=== PATIENT | male | born 1975 | race Caucasian/White ===

== ENCOUNTER → 2020-12-15 | Outpatient (CLI) | payer BC ==
--- NOTE | 2020-12-15 10:59 | Diagnostic Imaging Report ---
EXAMINATION: Bilateral shoulder at 10:35 a.m. INDICATION: Bilateral shoulder pain. Three views of each shoulder joint were obtained. There are no prior studies available for comparison. There is no fracture, dislocation or acute bony abnormality noted. There is mild degenerative disease of the glenohumeral joints bilaterally and moderate degenerative disease of the acromioclavicular joints. The soft tissues are unremarkable. IMPRESSION: 1. There is no evidence for an acute bony abnormality. 2. If there is clinical concern regarding injury to the labrum or rotator cuff, then MRI should be considered for further study. Dictated by: Dictated on workstation # [id number]
== END ==
LOC: RAD FS 10:32
PROVIDERS: ATTEND Nurse Practitioner
DX: M25.512 Pain in left shoulder (principal); M25.511 Pain in right shoulder

== ENCOUNTER 2021-05-18 11:08 | Emergency (ER) | payer BC, OTHER ==
[2021-05-18] MEDS ORDERED: HYDROcodone/APAP 5 MG/325 MG (LORTAB) TAB PO ONE (11:30)
[2021-05-18] MEDS ORDERED: HYDROcodone/APAP 5 MG/325 MG (LORTAB) TAB ONE (11:31)
--- NOTE | 2021-05-18 11:33 | ED Trauma-Multisystem ---
General Chief Complaint: Trauma-Non Activation Stated Complaint: WC FALL; HEAD INJ Nursing Triage Note: approx 20-30 ft fall History of Present Illness Date Seen by Provider: May 18, 2021 Time Seen by Provider: 11:25 Initial Comments 46-year-old male presents after falling off a deck while at work about 20 feet to the ground landing on his left side. Believes he was knocked out briefly when he hit the ground, but he got himself up, walked up the deck stairs and then got a rode home from a co-worker. After being home briefly he came to the ER with his . Patient complains of headache, left elbow pain, left hip pain. Denies any chest pain or shortness of air. Denies abdominal pain, nausea or vomiting. Denies any confusion or dizziness. No pain on his right side. No Significant past medical history Occurred: This Morning Allergies and Home Medications Allergies Coded Allergies: No Known Drug Allergies (Unverified , 05/18/21) Home Medications Cyclobenzaprine HCl 10 Mg Tablet, 10 MG PO Q8H PRN for SPASMS Prescribed by: RICKY LIMON on 05/18/21 1303 Hydrocodone/Acetaminophen 1 Each Tablet, 1 EACH PO Q4H Prescribed by: RICKY LIMON on 05/18/21 1304 Ibuprofen 800 Mg Tablet, 800 MG PO Q8H PRN for PAIN Prescribed by: RICKY LIMON on 05/18/21 1303 Patient Home Medication List Home Medication List Reviewed: Yes Review of Systems Review of Systems Constitutional: No fever, No malaise, No weakness Eyes: Denies Blindness, Denies Blurred Vision, Denies Photophobia Ears: No Symptoms Reported; Denies Dizziness, Denies Pain Nose: No Epistaxis, No Pain Mouth: No Symptoms Reported Throat: No Symptoms to Report Respiratory: no symptoms reported; No cough, No short of breath Cardiovascular: Denies Chest Pain, Denies Edema, Denies Palpitations Gastrointestinal: No abdominal pain, No loss of appetite, No nausea, No vomiting Genitourinary: No dysuria, No frequency, No hematuria Musculoskeletal: No back pain; joint pain (elbow and hip) Skin: other (facial abrasions and superficial lac's. ) Past Icrailv-Vkzfkl-Eowvxc Hx Patient Social History Tobacco Use?: No Substance use?: No Alcohol Use?: Yes Physical Exam Vital Signs Vital Signs - First Documented 05/18/21 11:10 Temp 36.5 Pulse 102 Resp 16 B/P (MAP) 143/92 (109) Pulse Ox 97 Height, Weight, BMI Height: '" Weight: lbs. oz. kg; BMI Method: General Appearance: No Apparent Distress, WD/WN Head: Contusions, Tenderness (scalp and forehead- superficial lac's and abrasions); No Mccain's Sign, No Raccoon Eyes Eyes: Bilateral Eye Normal Inspection, Bilateral Eye PERRL, Bilateral Eye EOMI Ears, Nose, Throat: Hearing Grossly Normal, No Evidence of ENT Injury, No Dental Injury Neck: Full Range of Motion, Normal Inspection, Non Tender, Supple; No Limited Range of Motion, No Tender Lateral, No Tender Midline Cardiovascular: Regular Rate, Rhythm, No Edema, No Gallop, No JVD, No Murmur Respiratory: Chest Non Tender, Lungs Clear, Normal Breath Sounds, No Accessory Muscle Use, No Respiratory Distress Gastrointestinal: Normal Bowel Sounds, No Organomegaly, No Pulsatile Mass, Non Tender, Soft Back: Normal Inspection, No CVA Tenderness, No Vertebral Tenderness Extremity: Normal Capillary Refill, Normal Range of Motion, Other (LUE- generaized TTP elbow; LLE- generalized left hip pain) Neurologic/Psychiatric: Alert, Oriented x3, No Motor/Sensory Deficits, Normal Mood/Affect, 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 Skin: Normal Color, Warm/Dry Hector Coma Score Best Eye Response (Ayaan): (4) Open Spontaneously Best Verbal Response (Ayaan): (5) Oriented Best Motor Response (Ayaan): (6) Obeys Commands Progress/Results/Core Measures Results/Orders My Orders Orders - RICKY LIMON DO Pelvis With Left Hip 2-3 View (05/18/21 11:25) Ct Head Wo (05/18/21 11:25) Ed Iv/Invasive Line Start (05/18/21 11:25) Elbow 3 View Left (05/18/21 11:25) Hydrocodone/Apap 5/325 Tablet (Lortab 5 (05/18/21 11:30) Hydrocodone/Apap 5/325 Tablet (Lortab 5 (05/18/21 11:31) Let Solution (Let Solution) (05/18/21 12:00) Dipht,Pertuss(Acell),Tet Adult (Boostrix (05/18/21 13:15) Medications Given in ED Current Medications Medications Dose Ordered Sig/Jeanne Route Start Time Stop Time Status Last Admin Dose Admin Acetaminophen/ Hydrocodone Bitart 1 ea ONCE ONCE PO 05/18/21 11:30 05/18/21 11:31 DC 05/18/21 11:33 1 EA Diphtheria/ Tetanus/Acell Pertussis 0.5 ml ONCE ONCE IM 05/18/21 13:15 05/18/21 13:16 DC 05/18/21 13:17 0.5 ML Tetracaine/ Epinephrine/ Lidocaine 3 ml STK-MED ONCE .ROUTE 05/18/21 12:00 05/18/21 12:03 DC 05/18/21 12:07 3 ML Vital Signs/I&O 05/18/21 05/18/21 05/18/21 11:10 11:33 13:32 Temp 36.5 36.5 Pulse 102 89 Resp 16 18 B/P (MAP) 143/92 (109) 115/74 Pulse Ox 97 97 Blood Pressure Mean: 109 Progress Progress Note : Progress Note Patient coherent and without any neurologic deficit. He does have a headache, some slight dizziness and intermittent difficulty focusing his vision. Discussed his normal CT of his head, pelvis and hip x-rays. His elbow does have evidence of a small chip fracture which may or may not be acute. Patient observed for couple hours and without any decline in sensorium or mentation. Able to ambulate without difficulty, decision made to allow patient to go home with strict precautions and advised on follow-up if concerns. Worker's Comp. report filled out and advised to be seen tomorrow for return to work restrictions. All questions were answered for patient and his . Diagnostic Imaging Diagonstic Imaging: CT Plain Films/CT/US/NM/MRI: head Comments Date of Exam:05/18/21 CT HEAD WO PROCEDURE: CT head without contrast. TECHNIQUE: Multiple contiguous axial images were obtained through the brain without the use of intravenous contrast. Auto Exposure Controls were utilized during the CT exam to meet ALARA standards for radiation dose reduction. INDICATION: 46-year-old male, 20 to 30 ft. fall. Loss of consciousness upon impact. Laceration. CORRELATION STUDY: None FINDINGS: The ventricles and sulci appearing age appropriate. There is no evidence for midline shift or mass effect. No definitive acute intracranial hemorrhage. Basilar cisterns are maintained. Mildly prominent appearance at the venous confluence. Areas of asymmetric scalp edema in the frontal region present. May be minimal amount of debris along skin surface left frontal region. Bony calvarium intact. Paranasal sinuses and mastoid air cells are clear. IMPRESSION: 1. Prominent frontal scalp hematoma. No calvarial fracture or evidence for acute traumatic intracranial abnormality. Dictated on workstation # [id number] Dict: 05/18/21 1148 Trans: 05/18/21 1154 SHANNAN [id number] Interpreted by: EMILIO PORTILLO DO Electronically signed by: Date of Exam:05/18/21 PELVIS WITH LEFT HIP 2-3 VIEW INDICATION: fall with left hip pain TECHNIQUE: AP pelvis along with 2 views left hip, CORRELATION STUDY: None FINDINGS: The pelvis demonstrates no evidence for acute fracture. The pectineal lines and obturator rings are maintained. Pubic symphysis and SI joints are unremarkable. Images of the hip demonstrate no evidence for acute fracture. Alignment is anatomic. The femoral head acetabular relationship is unremarkable. The bony trabecular pattern is intact. IMPRESSION: Negative examination of the pelvis and left hip. Dictated on workstation # [id number] Dict: 05/18/21 1213 Trans: 05/18/21 1214 [id number] Interpreted by: EMILIO PORTILLO DO Electronically signed by: Date of Exam:05/18/21 ELBOW 3 VIEW LEFT INDICATION: Left elbow injury COMPARISON: None. FINDINGS: 3 views left elbow demonstrate a questionable nondisplaced fracture of the coronoid. There is no joint effusion. There is no dislocation. The radius and distal humerus are intact. IMPRESSION: Questionable chip fracture of the coronoid process. Dictated on workstation # [id number] Dict: 05/18/21 1217 Trans: 05/18/21 1219 [facility] [id number] Interpreted by: CARLOS RODARTE Electronically signed by: Departure Impression Primary Impression: Fall from height of greater than 3 feet Additional Impressions: Head contusion Qualified Codes: S00.93XA - Contusion of unspecified part of head, initial encounter Laceration of scalp Qualified Codes: S01.01XA - Laceration without foreign body of scalp, initial encounter Contusion of hip, left Qualified Codes: S70.02XA - Contusion of left hip, initial encounter Elbow contusion Qualified Codes: S50.02XA - Contusion of left elbow, initial encounter Disposition: HOME, SELF-CARE Condition: Improved Departure-Patient Inst. Decision time for Depature: 13:01 Referrals: [facility] (PCP/Family) Primary Care Physician Patient Instructions: Concussion, Adult (DC), Minor Head Injury (DC), Laceration Repair With Severino (DC) Add. Discharge Instructions: follow up with your PCP (or establish one) in 1 week for re-examination and removal of your staple. REturn to the ER with any worsening symptoms All discharge instructions reviewed with patient and/or family. Voiced understanding. Scripts Ibuprofen (Ibuprofen) 800 Mg Tablet 800 MG PO Q8H PRN for PAIN, #30 TAB 0 Refills Prov: RICKY LIMON DO 05/18/21 Hydrocodone/Acetaminophen (Hydrocodone-Acetamin 5-325 mg) 1 Each Tablet 1 EACH PO Q4H for Abdominal Pain, #20 TAB Prov: RICKY LIMON DO 05/18/21 Cyclobenzaprine HCl (Cyclobenzaprine HCl) 10 Mg Tablet 10 MG PO Q8H PRN for SPASMS, #15 TAB 0 Refills Prov: RICKY LIMON DO 05/18/21 RICKY LIMON DO May 18, 2021 11:33
--- NOTE | 2021-05-18 11:54 | Diagnostic Imaging Report ---
PROCEDURE: CT head without contrast. TECHNIQUE: Multiple contiguous axial images were obtained through the brain without the use of intravenous contrast. Auto Exposure Controls were utilized during the CT exam to meet ALARA standards for radiation dose reduction. INDICATION: 46-year-old male, 20 to 30 ft. fall. Loss of consciousness upon impact. Laceration. CORRELATION STUDY: None FINDINGS: The ventricles and sulci appearing age appropriate. There is no evidence for midline shift or mass effect. No definitive acute intracranial hemorrhage. Basilar cisterns are maintained. Mildly prominent appearance at the venous confluence. Areas of asymmetric scalp edema in the frontal region present. May be minimal amount of debris along skin surface left frontal region. Bony calvarium intact. Paranasal sinuses and mastoid air cells are clear. IMPRESSION: 1. Prominent frontal scalp hematoma. No calvarial fracture or evidence for acute traumatic intracranial abnormality. Dictated by: Dictated on workstation # [id number]
[2021-05-18] MEDS ORDERED: L.E.T. SOLUTION 3 ML SYR ONE (12:00)
--- NOTE | 2021-05-18 12:15 | Diagnostic Imaging Report ---
INDICATION: fall with left hip pain TECHNIQUE: AP pelvis along with 2 views left hip, CORRELATION STUDY: None FINDINGS: The pelvis demonstrates no evidence for acute fracture. The pectineal lines and obturator rings are maintained. Pubic symphysis and SI joints are unremarkable. Images of the hip demonstrate no evidence for acute fracture. Alignment is anatomic. The femoral head acetabular relationship is unremarkable. The bony trabecular pattern is intact. IMPRESSION: Negative examination of the pelvis and left hip. Dictated by: Dictated on workstation # [id number]
--- NOTE | 2021-05-18 12:20 | Diagnostic Imaging Report ---
INDICATION: Left elbow injury COMPARISON: None. FINDINGS: 3 views left elbow demonstrate a questionable nondisplaced fracture of the coronoid. There is no joint effusion. There is no dislocation. The radius and distal humerus are intact. IMPRESSION: Questionable chip fracture of the coronoid process. Dictated by: Dictated on workstation # [id number]
[2021-05-18] MEDS ORDERED: IBUP-1780 PO (13:03)
[2021-05-18] MEDS ORDERED: CYCL10TA9 PO (13:03)
[2021-05-18] MEDS ORDERED: ACHD5005 PO (13:03)
[2021-05-18] MEDS ORDERED: TETANUS,DIPTH,PERTUSS P/F (BOOSTRIX) 0.5 ML VIAL IM ONE (13:15)
[2021-05-18 13:32] VITALS: BP 115/74
== END 2021-05-18 13:29 | disposition home or self-care (01) ==
LOC: EDUNIT# 11:08 → ER FS 11:10
DX: S01.01XA Laceration without foreign body of scalp, initial encounter (principal); S70.02XA Contusion of left hip, initial encounter; S50.02XA Contusion of left elbow, initial encounter; Z23 Encounter for immunization; W17.89XA Other fall from one level to another, initial encounter; Y92.59 Other trade areas as the place of occurrence of the external cause; Y99.0 Civilian activity done for income or pay
CPT/HCPCS: 70450; 73080; 73502; 90715

== ENCOUNTER 2023-06-22 23:05 | Emergency (ER) | payer OTHER ==
[~2023-06-22] VITALS: Ht 167 cm; Wt 117.9 kg
[2023-06-22 23:05] VITALS: BP 137/82
[~2023-06-22 23:05] MED LIST: ACHD5005 PO; CYCL10TA25 PO; IBUP-1780 PO
[2023-06-22] MEDS ORDERED: AMOXICILLIN/Clavulanate 875 MG TABLET ONE (23:30)
[2023-06-22] MEDS ORDERED: AMOXICILLIN/Clavulanate 875 MG TABLET PO STA (23:31)
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
[2023-06-22] MEDS ORDERED: AMOX1TAB12 PO (23:46)
[2023-06-22] MEDS ORDERED: BACITRACIN OINTMENT 28 GM TUBE ONE (23:48)
[2023-06-23] MEDS ORDERED: BACITRACIN OINTMENT 28 GM TUBE TOP SCH (09:00)
== END 2023-06-22 23:53 ==
LOC: EDUNIT# 23:05 → ER FS 23:07
DX: S01.452A Open bite of left cheek and temporomandibular area, initial encounter (principal); E66.9 Obesity, unspecified; Z68.41 Body mass index [BMI] 40.0-44.9, adult; Z28.310 Unvaccinated for COVID-19; Y04.1XXA Assault by human bite, initial encounter; Y92.009 Unspecified place in unspecified non-institutional (private) residence as the place of occurrence of the external cause
CPT/HCPCS: 99281